=== PATIENT | female | born 1955 | race Caucasian/White ===

== ENCOUNTER → 2017-12-07 16:09 | Outpatient (CLI) | payer OTHER, SELFPAY ==
[2014-01-05 19:09] VITALS: BMI 28.8
[2014-01-08 13:14] VITALS: BP 109/58
--- NOTE | 2017-12-07 | VUL_PTH ---
PATIENT: MERLY MALDONADO LOC: [facility] U#:[id number] AGE/SX: 69/F ROOM: RE12/07/[address]: Dr. Becca Goldberg MD : 1955 BED: DIS: SPEC #: [id number] RECD: 12/07/17 15:59 STATUS: MIREILLE SUSANNE #: [id number] TOMASA: 12/07/17 00:[address]: Becca Goldberg DEPT: SURGICAL PATHOLOGY RECD BY: Billy Brown ENTERED: 12/08/17 10:52 SP TYPE: VULVA BX OTHR DR: Dr. Zohaib Carrasquillo DO Tissues: Vulva, NOS Procedures: Special Stain Group I Surgery Specimen Level IV GMS Stain (control) HEADER OPERATION: Punch biopsy, left posterior labia PRE-OP DIAGNOSIS: Vulvar lesion N76.6 TISSUE SUBMITTED: Punch biopsy left labia MICROSCOPIC DIAGNOSIS Left labia, punch biopsy: Fragment of squamous mucosa with acute inflammation, necrosis and acantholytic changes. Special stain for fungi is negative for organisms; matched control is appropriate. Negative for malignancy. MARY:ivory 12/09/17 COMMENT Clinical correlation and appropriate follow up are necessary. This case has been reviewed in consultation with Dr. Romano who concurs with the above diagnosis. MICROSCOPIC DESCRIPTION Slides are reviewed. GROSS DESCRIPTION Received in fixative is one container labeled with the patient's name and designated punch biopsy. The specimen consists of a single irregular fragment of covarrubias tissue measuring 0.3 x 0.3 x 0.2 cm. The specimen is totally submitted in one cassette. / AM:ivory 12/08/17 TC:2 CPT: 13539, 77872
== END ==
PROVIDERS: Family Provider Family Medicine; PCP Family Medicine; Visit Provider Obstetrics & Gynecology
DX: N76.6 Ulceration of vulva (principal)
CPT/HCPCS: 88305; 88312

== ENCOUNTER → 2018-01-06 12:44 | Outpatient (CLI) | payer OTHER, SELFPAY ==
--- NOTE | 2018-01-06 12:52 | RAD_ITS ---
STUDY: X-RAY - LEFT KNEE REASON FOR EXAM: Female, 62 years old. Left knee gives out sometimes. TECHNIQUE: 4 view(s) of the knee. COMPARISON: None. FINDINGS: Normal visualized distal femur. Normal visualized proximal tibia and fibula. Normal patella. There is no demonstrated destructive osseous lesion or acute fracture. There is mild degenerative arthrosis of the medial femorotibial compartment. Normal lateral femorotibial compartment. Normal patellofemoral articulation. Normal proximal tibiofibular articulation. There is no demonstrated joint effusion. There are a few serpiginous soft tissue densities consistent with venous varices in the medial and lateral superficial soft tissues of the visualized left leg. RAD/Knee 4 or More Views IMPRESSION: Degenerative narrowing of the medial femorotibial joint compartment. Electronically Signed: Fernando De León MD at 18:29 EST , Service support ,
--- NOTE | 2018-01-06 12:52 | RAD_ITS ---
STUDY: X-RAY - RIGHT KNEE REASON FOR EXAM: Female, 62 years old. Right knee pain. TECHNIQUE: 4 view(s) of the knee, 2 of which are labeled as weightbearing. COMPARISON: None. FINDINGS: Normal visualized distal femur. Normal visualized proximal tibia and fibula. Normal patella. There is no demonstrated destructive osseous lesion or fracture. Normal medial femorotibial compartment. Normal lateral femorotibial compartment. Normal patellofemoral articulation. Normal proximal tibiofibular articulation. There is no demonstrated joint effusion. Tortuous, mildly ectatic venous channel seen in the medial subcutaneous tissues of the right lower leg. RAD/Knee 4 or More Views IMPRESSION: Mild degenerative narrowing of the medial femorotibial joint compartment. Electronically Signed: Fernando De León MD at 18:30 EST , Service support ,
--- NOTE | 2018-01-06 12:52 | RAD_ITS ---
STUDY: X-RAY - CERVICAL SPINE REASON FOR EXAM: Female, 62 years old. Right arm numbness. TECHNIQUE: 5 view(s) of the cervical spine were obtained. COMPARISON: None FINDINGS: There are degenerative changes of the anterior atlantoaxial articulation. Normal odontoid process. There is mild straightening of the normal cervical lordosis. There is C6-7 endplate spondylosis. There is multi-level degenerative disc disease with multilevel disc space narrowing, most prominent at C6-7. There are degenerative changes of the facet articulations with severe osseous impingement on the left C6-7 intervertebral neural foramen. Mild to moderate narrowing seen on the right as well as on the right at C3-4. The prevertebral soft tissue structures are unremarkable. There is no demonstrated osseous destructive process or fracture of the cervical spine. RAD/Cerv Spine 4 or 5 Views IMPRESSION: Generative changes of the visualized cervical spine, as noted, most severe at C6-7. Electronically Signed: Fernando De León MD at 18:28 EST , Service support ,
== END ==
PROVIDERS: Family Provider Family Medicine; PCP Family Medicine; Visit Provider Family Medicine
DX: M54.2 Cervicalgia (principal); M25.561 Pain in right knee; M25.562 Pain in left knee
CPT/HCPCS: 72050; 73564

== ENCOUNTER → 2019-03-31 | Outpatient (CLI) | payer OTHER, SELFPAY ==
[2019-03-31 14:16] VITALS: BMI 31.3
[2019-03-31 17:04] LABS: Creatinine, Serum 0.73 mg/dL (0.55-1.02); EST Glomerular Filtration Rate 86 mL/min (>60); Est Glom Filt Rate - Afr Amer 104 mL/min (>60)
== END | disposition home or self-care (01) ==
LOC: LAB 15:32
PROVIDERS: Family Provider Family Medicine; PCP Family Medicine; Referring Provider Surgery; Visit Provider Surgery
DX: Z01.818 Encounter for other preprocedural examination (principal)
CPT/HCPCS: 36415; 82565

== ENCOUNTER → 2019-04-07 | Outpatient (CLI) | payer OTHER, SELFPAY ==
[2019-03-31 14:16] VITALS: BMI 31.3
--- NOTE | 2019-04-07 06:54 | CT_ITS ---
STUDY: CT ABDOMEN AND PELVIS WITH CONTRAST REASON FOR EXAM: Female, 63 years old. Constipation. Mid abdominal pain. RADIATION DOSAGE (If Supplied By Facility): CTDIvol = ( 14.43 ) mGy, DLP = ( 895.15 ) mGycm TECHNIQUE: Transaxial images were obtained from the dome of the diaphragm to the symphysis pubis without oral contrast. 100ML IV/Oral Isovue 300 was administered. Sagittal and coronal images were reconstructed. Individualized dose optimization techniques were used for this CT. COMPARISON: October 03, 2012 FINDINGS: The visualized lung bases are unremarkable. The visualized portions of the heart are within normal limits. Normal liver. Normal gallbladder and extrahepatic biliary system. Normal spleen. Normal pancreas. Normal bilateral adrenal glands. Normal there is a 2.5 cm left renal cyst. There are additional too small to characterize low-attenuation foci within the kidneys that likely reflect underlying cysts. Normal visualized stomach. Normal small intestine. There are diverticula throughout the sigmoid colon. The appendix is visualized and appears normal. Normal abdominal aorta. Normal inferior vena cava. Normal retroperitoneum. Normal urinary bladder. Normal abdominal wall. There are diffuse degenerative changes of the visualized thoracic and lumbar spine. CT/Abdomen/Pelvis WITH Contrast IMPRESSION: Colonic diverticulosis without evidence of diverticulitis. Left renal cyst. Electronically Signed: Zohreh Mae MD at 22:45 EDT Tel , Service support ,
== END | disposition home or self-care (01) ==
LOC: CT 06:49
PROVIDERS: Family Provider Family Medicine; PCP Family Medicine; Referring Provider Surgery; Visit Provider Surgery
DX: R10.9 Unspecified abdominal pain (principal); R19.4 Change in bowel habit; M54.9 Dorsalgia, unspecified
CPT/HCPCS: 74177; Q9967

== ENCOUNTER → 2019-04-21 | Outpatient (CLI) | payer OTHER, SELFPAY ==
[2019-03-31 14:16] VITALS: BMI 31.3
== END | disposition home or self-care (01) ==
LOC: MTLAB 16:06
PROVIDERS: Family Provider Family Medicine; PCP Family Medicine; Referring Provider Surgery; Visit Provider Surgery
DX: E11.9 Type 2 diabetes mellitus without complications (principal)
CPT/HCPCS: 36415; 83036

== ENCOUNTER 2019-04-28 08:09 | Day surgery (SDC) | payer OTHER, SELFPAY ==
--- NOTE | 2019-03-31 07:15 | HP_ITS ---
Intake Vital Signs 03/31/19 Height 5 ft 6 in 03/31/19 Weight: 194 lb 03/31/19 Body Mass Index (BMI) 31.3 03/31/19 Blood Pressure 144/85 H 03/31/19 Blood Pressure Location Rt brachial 03/31/19 Blood Pressure Position Sitting 03/31/19 Respiratory Rate 18 03/31/19 Pulse Rate 76 03/31/19 Pulse Source Monitor 03/31/19 Temperature 97.5 F L 03/31/19 Temperature Source Oral 03/31/19 Pulse Ox 99 03/31/19 Oxygen Delivery Method room air Intake Visit Reasons: Umbilical Hernia Compliance Attorney Required: No Is patient in pain?: No Allergies No Known Allergies Allergy (Verified 03/31/19 14:17) Medications NK 03/31/19 [History Confirmed 03/31/19] PFSH Medical History Constipation (Acute) Abdominal pain (Acute) Back pain (Acute) Arthritis (Acute) Depression (Acute) History of back problems (Acute) History of left heart catheterization (Acute) Sleep apnea (Acute) Family History Mother Diabetes Father Heart disease Brother Heart disease Social History Smoking Status: Unknown if ever smoked alcohol intake: current alcohol intake frequency: a few times a month substance use type: does not use HPI HPI HPI: MERLY MALDONADO, is a 63 F who presents to the office today for HPI HPI Surgical H&P: Yes HPI: MERLY MALDONADO, is a 63 F who presents to the office today for surgical consultation regarding 2-month history of back pain as well as abdominal distention severe change of bowel habits with constipation possible prolapsing rectal material. She thought that she had a fat protruding abdominal wall she is complains of upper abdominal bloating. She thinks she had a colonoscopy 2012 which was not remarkable. She denies family history of colon cancer or colon polyps. There was some concern that she might have a umbilical or ventral hernia. The patient points to her abdomen which has some fluffy folds of fibro-fatty tissue. She thinks she might be asymmetric. Patient is referred by his primary care is Dr. Zohaib Carrasquillo for surgical consultation regarding possibility of a abdominal pain being a umbilical or ventral hernia. A written copy of my surgical consult recommendations will be returned to him ROS General General: Yes weight change; no appetite, fatigue, colon cancer, breast cancer or weakness HEENT HEENT: No difficulty swallowing, eye injury, eye surgery, swollen glands or hoarseness Endo Endocrine: No thyroid disease, diabetes mellitus, thyroid cancer, Hair loss, heat intolerance or cold intolerance Skin Skin: No rash or changing moles Breast Breast: No left breast lump, right breast lump, nipple discharge, breast pain, abnormal mammogram, abnormal US or breast enlargement Musc Musculoskeletal: Yes back problems and arthritis; no rheumatoid arthritis, gout or joint pain Cardio Cardiovascular: No murmur, pacemaker, heart disease, atrial fibrillation, high blood pressure, heart attack, heart stent, palpitations, shortness of breat with exertion or chest pain Psych Psychiatric: Yes depression; no anxiety or hearing voices Resp Respiratory: No shortness of breath, Yes sleep apnea, No cough, No COPD, No asthma, No emphysema, No wheezing Gastro Gastrointestinal: No abdominal pain, No nausea or vomiting, No diarrhea, Yes constipation, No blood in stool, No acid reflux, Yes hemorrhoids, Yes ulcers, No gallbladder problem, No black,tarry stools [place] Hematologic: No blood thinners, No blood disorders, No bleeding, No anemia, No blood clots Neuro Neurologic: No system reviewed and no additional complaints, except as docu, No as per HPI, No abnormal walking, No abnormal hearing, No abnormal movements, No abnormal speech, No behavioral changes, No burning sensations, No confusion, No seizure-like activity, No unsteadiness, No dizziness, No localized weakness, No frequent falls, No headache(s), No lack of coordination, No loss of vision, No memory loss, No numbness, No other visual disturbances, No radiating pain, No restless legs, No sensory deficit, No fainting, No tingling, No tremor(s), No weakness, No other Exam Const General: cooperative, healthy appearing, comfortable, no acute distress Nutritional Appearance: obese Orientation: alert, awake [facility] Head: normal to inspection Chest Chest palpation & inspection: normal inspection of the chest Breast Palpation: No nipple discharge Resp Effort & Inspection: normal respiratory effort Auscultation: clear to auscultation bilaterally Cardio Rate: regular rate Rhythm: regular rhythm Heart Sounds: no murmurs GI Palpation: soft Auscultation: normal bowel sounds Musc Cervical Spine: normal cervical lordosis Skin General: no rashes or lesions noted Neuro Cognition: normal cognition Extrem General: no calf tenderness bilaterally Psych Affect: normal affect Assessment & Plan Problems 1. Acute midline low back pain without sciatica M54.5 2. Generalized abdominal pain R10.84 3. Constipation, unspecified constipation type K59.00 Plan Patient with new onset of back pain new onset of abdominal bloating fullness significant change of bowel habits with severe constipation. I am not detecting an umbilical or ventral hernia that would correlate with this problem. I am recommending to her a CT scan of the abdomen and pelvis. She is aware of the technique. I am recommending a colonoscopy with possible biopsy or polypectomy as indicated. If the CT scan demonstrates an upper GI etiology i.e. hiatal hernia then I would recommend adding a esophagogastroduodenoscopy at the time of the colonoscopy. She has had an opportunity to ask and have questions answered. We will proceed with a CT scan and then anticipate endoscopic evaluation as noted above. I very much appreciate the kind opportunity of assisting with her surgical care. CC: Dr. Zohaib Means M.D., F.A.C.S. Orders Orders: Colonoscopy Today K59.00, R10.9 Serum Creatinine & GFR Today Z01.818 Abdomen/Pelvis WITH Contrast Today M54.9, R10.9, R19.4 Coding Level of Care Code Comprehensive,moderate Diagnoses Acute midline low back pain without sciatica M54.5 ??Back pain location: low back pain ??Chronicity: acute ??Back pain laterality: midline ??Sciatica presence: without sciatica Generalized abdominal pain R10.84 ??Abdominal location: generalized Constipation, unspecified constipation type K59.00 ??Constipation type: unspecified constipation type 03/31/191914 <Electronically signed by Darian collins MD> Date _ Darian Means MD I have re-examined the patient. There are no clinical changes since date of exam.
[2019-03-31 14:16] VITALS: BMI 31.3
[2019-04-28] VITALS (7 sets, daily range): BP systolic 119–137; BP diastolic 67–86; PULSE 56–76; RESP 14–16; TEMP 36.1–36.3; O2SAT 97–100; BMI 30.3
--- NOTE | 2019-05-03 10:44 | OP.ENDO_ITS ---
05/03/2019 Zohaib Carrasquillo [address] [place] [address] Re : Colonoscopy procedure for Liane Hernándezbaugh Dear Dr. Carrasquillo This procedure was performed on Sunday, April 28, 2019. My impressions and recommendations are as follows: Impressions : - Hemorrhoids found on perianal exam. - Diverticulosis in the entire examined colon. There was no evidence of diverticular bleeding. - The examination was otherwise normal. - No specimens collected. Recommendations : - Discharge patient to home. - Resume previous diet. - Continue present medications. - Repeat colonoscopy in 10 years for screening purposes. My findings are described in the full procedure note, which is enclosed. If I can be of further assistance, please feel free to contact me at Doctor phone number(s): Work: . Sincerely, Darian Means MD 04/28/2019 10:00:06 AM This report has been signed electronically.
== END 2019-04-28 10:45 | disposition home or self-care (01) ==
LOC: EN 08:09 → AC 08:10
PROVIDERS: Family Provider Family Medicine; PCP Family Medicine; Referring Provider Family Medicine; Visit Provider Surgery
PROC: 0DJD8ZZ Inspection of Lower Intestinal Tract, Via Natural or Artificial Opening Endoscopic (ICD-10-PCS; CPT 45378; principal; 2019-04-28 09:10)
DX: K57.30 Diverticulosis of large intestine without perforation or abscess without bleeding (principal); K64.9 Unspecified hemorrhoids; E66.9 Obesity, unspecified; M19.90 Unspecified osteoarthritis, unspecified site; Z68.31 Body mass index [BMI] 31.0-31.9, adult
CPT/HCPCS: 45378; J7120

== ENCOUNTER → 2021-02-13 08:30 | Outpatient (CLI) | payer OTHER, SELFPAY ==
[2019-04-28 08:33] VITALS: BMI 30.3
--- NOTE | 2021-02-13 08:35 | RAD_ITS ---
STUDY: X-RAY - LUMBAR SPINE REASON FOR EXAM: Female, 65 years old. LOW BACK PAIN TECHNIQUE: 5 view(s) of the lumbar spine were obtained including oblique views. COMPARISON: Comparison is made with prior study dated 01/23/2011. FINDINGS: Normal lumbar lordosis. There is a mild dextroscoliosis of the lumbar spine. There is a normal alignment of the vertebrae. Normal vertebral bodies and endplates. Normal disc space heights. Moderate amount of fecal material is seen in the colon. RAD/L/S Spine Min 4 Views IMPRESSION: Mild dextroscoliosis. Electronically Signed: Usman Bhandari MD at 14:39 EDT , Service support ,
--- NOTE | 2021-02-13 09:00 | RAD_ITS ---
STUDY: X-RAY - CERVICAL SPINE REASON FOR EXAM: Female, 65 years old. R CERVICAL RADICULOPATHY TECHNIQUE: 5 view(s) of the cervical spine were obtained including oblique views. COMPARISON: Comparison is made with prior study of 01/06/2018. FINDINGS: Normal anterior atlantoaxial articulation. Normal odontoid process. There is straightening of the normal cervical lordosis. Moderate degree of disc space narrowing and spondylosis at the C6-C7 level. Normal visualized intervertebral neuroforamina. The soft tissue structures are unremarkable. RAD/Cerv Spine 4 or 5 Views IMPRESSION: Disc space narrowing and spondylosis at the C6-C7 level. Electronically Signed: Usman Bhandari MD at 14:38 EDT , Service support ,
[2021-02-13 10:26] LABS: Absolute Lymphocyte Count 1.16 X10^3/uL (0.83-4.51); Absolute Neutrophil Count 1.9 X10^3/uL (2.0-7.7); Basophil# 0.03 X10^3/uL; Basophil% 0.8 % (0-1); Eosinophil# 0.07 X10^3/uL; Eosinophils% 1.9 % (0-5); Hemoglobin 12.7 g/dL (12.0-15.0); Lymphocyte # 1.16 X10^3/ul (0.83-4.51); Lymphocyte % 31.8 % (19-41); Mean Corp Hgb Conc 30.2 g/dL (32-36); Mean Corpuscular Hgb 28.4 pg (27.0-32.0); Mean Platelet Vol. 10.9 fl (6.2-12.0); Monocyte# 0.51 X10^3/uL; NRBC Flagged by Analyzer 0 % (0-5); Neutrophil # 1.87 X10^3/uL (2.7-7.7); Neutrophil % 51.2 % (47-70); Platelet Count 275 K/mm3 (150-450); RBC Distribution Width CV 13.8 % (11.6-14.6); Red Blood Count 4.47 M/mm3 (4.2-5.4); White Blood Count 3.7 K/mm3 (4.4-11.0)
[2021-02-13 10:48] LABS: Hemoglobin A1c 5.5 % (3.8-5.6)
[2021-02-13 11:04] LABS: ALB/GLOB Ratio 0.9 RATIO (0.9-2.4); AST(SGOT) 16 U/L (15-37); Alanine Aminotransfer ALT/SGPT 26 U/L (13-56); Albumin, Serum 3.6 g/dL (3.2-5.0); Alkaline Phosphatase 109 U/L (45-117); Anion Gap 3 (5-15); BUN 16 mg/dL (7-18); BUN/Creat Ratio 24.4 RATIO (10-20); Calcium,Total 8.9 mg/dL (8.5-10.1); Chloride 107 mmol/L (98-107); Cholesterol 190 mg/dL (200); Creatinine, Serum 0.66 mg/dL (0.55-1.02); EST Glomerular Filtration Rate 97 mL/min (>60); Est Glom Filt Rate - Afr Amer 117 mL/min (>60); Globulin 3.9 g/dL (2.2-4.2); Glucose 85 mg/dL (74-106); High Density Lipoprotein 65 mg/dL; Potassium 3.5 mmol/L (3.5-5.1); Protein, Total 7.5 g/dL (6.4-8.2); Sodium Level 141 mmol/L (136-145); T4 Free Direct 0.93 ng/dL (0.76-1.46); Thyroid Stim Hormone (TSH) 1.42 uIU/mL (0.358-3.74); Triglycerides 94 mg/dL; Very Low Density Lipoprotein 19 mg/dL (5-40)
== END ==
PROVIDERS: PCP Family Medicine; Referring Provider Family Medicine; Visit Provider Family Medicine
DX: Z00.00 Encounter for general adult medical examination without abnormal findings (principal); M54.12 Radiculopathy, cervical region; M54.5 Low back pain; R73.03 Prediabetes; R53.83 Other fatigue
CPT/HCPCS: 36415; 72050; 72110; 80053; 80061; 83036; 84439; 84443; 85025

== ENCOUNTER → 2021-02-25 08:20 | Outpatient (CLI) | payer OTHER, SELFPAY ==
[2019-04-28 08:33] VITALS: BMI 30.3
--- NOTE | 2021-02-25 08:21 | CT_ITS ---
STUDY: CT ABDOMEN AND PELVIS WITH CONTRAST REASON FOR EXAM: Female, 65 years old. CENTRAL ABD MASS OF UNCERTAIN SIGNIFICANCE/POSSIBLE HERNIA RADIATION DOSAGE (If Supplied By Facility): CTDIvol = ( 13.04 ) mGy, DLP = ( 1410.65 ) mGycm TECHNIQUE: Transaxial images were obtained from the dome of the diaphragm to the symphysis pubis with oral contrast. Oral and amp; IV Readi-CAT and amp; 100mL Isovue-300 was administered. Sagittal and coronal images were reconstructed. Individualized dose optimization techniques were used for this CT. COMPARISON: Comparison is made with prior study dated 04/07/2019. FINDINGS: The visualized lung bases are unremarkable. The visualized portions of the heart are within normal limits. Normal liver. Normal gallbladder and extrahepatic biliary system. Normal spleen. Normal pancreas. Normal bilateral adrenal glands. Normal right kidney. There is a 2.8 cm cyst in the posterior aspect of the midportion of the left kidney. One some mucous cyst in the medial inferior pole of the left kidney. There is a small hiatal hernia. Normal small intestine. There are scattered colonic diverticula consistent with diverticulosis. The appendix is visualized and appears normal. Normal abdominal aorta. Normal inferior vena cava. Normal retroperitoneum. Normal urinary bladder. 1 cm cyst in the left ovary. Normal abdominal wall. Normal osseous structures. Minimal dextroscoliosis of the lumbar spine. CT/Abdomen/Pelvis WITH Contrast IMPRESSION: Stable left renal cysts. Scattered sigmoid diverticula. Small hiatal hernia. Electronically Signed: Usman Bhandari MD at 10:40 EDT , Service support ,
== END ==
PROVIDERS: PCP Family Medicine; Referring Provider Family Medicine; Visit Provider Family Medicine
DX: R19.00 Intra-abdominal and pelvic swelling, mass and lump, unspecified site (principal)
CPT/HCPCS: 74177; Q9967

== ENCOUNTER → 2021-04-08 09:46 | Outpatient (CLI) | payer OTHER, SELFPAY ==
[2021-04-03 15:17] VITALS: BMI 31.2
--- NOTE | 2021-04-08 13:24 | STRESSREP ---
Stress Test Report Date: 04-08-2021 Procedure: Exercise tolerance test Indications: Abnormal ECG; family history of cardiovascular disease Consent: Per the patient Procedure: The patient exercised on a Cipriano protocol for 5 minutes completing stage I and 2 minutes of stage II achieving a peak heart rate of 153 bpm (97% predicted maximal heart rate) with a peak blood pressure 208/96 mmHg and a peak MET capacity of approximately 7 MET's. The baseline ECG demonstrated sinus rhythm. The peak exercise ECG demonstrated approximately [address] segment depression in leads II, III, aVF, and approximately [address] segment depression in V4 through V6 with subsequent resolution towards baseline in recovery. There was a rare PVC during exercise and recovery. The functional capacity was considered average. The patient had no complaint of chest discomfort during exercise or recovery. The examination was discontinued secondary to dyspnea. Impression: 1. Technically adequate (percent predicted maximal heart rate greater than 85%) exercise tolerance test 2. Peak exercise ECG considered abnormal with approximately [address] segment depression in leads II, III, aVF, and approximately [address] segment depression in V4 through V6 with subsequent resolution towards baseline in recovery 3. There was a rare PVC during exercise and recovery This note was generated with [employer] software. It may contain incorrect words, spelling, and punctuation that were not noted in checking the note before signing.
== END ==
PROVIDERS: PCP Family Medicine; Referring Provider Internal Medicine Cardiovascular Disease; Visit Provider Internal Medicine Cardiovascular Disease
DX: R94.31 Abnormal electrocardiogram [ECG] [EKG] (principal); Z82.49 Family history of ischemic heart disease and other diseases of the circulatory system
CPT/HCPCS: 93017

== ENCOUNTER → 2021-04-22 07:53 | Outpatient (CLI) | payer OTHER, SELFPAY ==
[2021-04-03 15:17] VITALS: BMI 31.2
--- NOTE | 2021-04-22 07:54 | ECHOCS_ITS ---
Reason For Study: +FAM HX/ ABN EKG Procedure This was a 2D Doppler, Color Flow transthoracic echocardiogram. The study was technically difficult. Contrast injection was performed. Exam performed in department. Left Ventricle Normal LV size. Left ventricular systolic function is normal. The estimated ejection fraction is 65 %. No evidence for diastolic dysfunction. No regional wall motion abnormalities noted. Right Ventricle Normal RV size. Normal systolic function. Atria Normal left atrium. Normal right atrium. No doppler evidence for ASD. Mitral Valve There is no mitral annular calcification. Anterior leaflet diffuse mitral valve thickening. Mild mitral valve prolapse. Trivial mitral valve insufficiency. Tricuspid Valve Normal tricuspid valve. Trivial tricuspid valve insufficiency. Right ventricular systolic pressure estimated to be 23 mmHg. Aortic Valve Trisinus/trileaflet aortic valve. Normal aortic valve. Pulmonic Valve The pulmonic valve is not well visualized. Trivial pulmonic valve insufficiency. Great Vessels Normal sized aortic root. Pericardium/Pleural No pericardial effusion. Medication 22 gauge I.V. with prn adaptor inserted into right arm. Diluted definity 7ml given slow IV push to enhance endocardial definition. MMode/2D Measurements & Calculations LVIDd: 4.6 cm IVSd: 0.93 cm Ao root diam: 3.1 cm LVIDs: 3.1 cm LVPWd: 0.95 cm RVDd: 3.8 cm FS: 33.2 % LAV(MOD-bp): 51.4 ml LA A4 area: 19.0 cm2 LA dimension(2D): 3.5 cm LAV(MOD-bp) Indexed: 26.1 ml/m2 LAV(MOD-sp2): 47.6 ml LAV(MOD-sp4): 54.9 ml RA A4 area: 15.7 cm2 Time Measurements MV dec time: 0.23 sec Doppler Measurements & Calculations MV E max carlos: 52.5 cm/sec Lat Peak E' Carlos: 6.4 cm/sec Med Peak E' Carlos: 4.8 cm/sec MV A max carlos: 43.4 cm/sec E/E' lat: 8.2 E/E' med: 11.0 MV E/A: 1.2 Ao V2 max: 98.2 cm/sec LV V1 max: 74.8 cm/sec PA V2 max: 76.9 cm/sec Ao max P.9 mmHg LV V1 max P.2 mmHg TR max carlos: 221.3 cm/sec TR max P.6 mmHg ECHO/Echo Complete W/ Contrast Interpretation Summary The study was technically difficult. Contrast injection was performed. Left ventricular systolic function is normal. The estimated ejection fraction is 65 %. Anterior leaflet diffuse mitral valve thickening. Mild mitral valve prolapse. Trivial mitral valve insufficiency. Trivial tricuspid valve insufficiency. Trivial pulmonic valve insufficiency. Right ventricular systolic pressure estimated to be 23 mmHg. No evidence for diastolic dysfunction. Ordering Physician: Yash Storm Referring Physician: NURY HARRIS Performed By: Bernadette Bagley, RAMIRO, RVT
== END ==
PROVIDERS: PCP Family Medicine; Referring Provider Internal Medicine Cardiovascular Disease; Visit Provider Internal Medicine Cardiovascular Disease
DX: R94.39 Abnormal result of other cardiovascular function study (principal); R94.31 Abnormal electrocardiogram [ECG] [EKG]
CPT/HCPCS: 93306; Q9957; A4216; C8929; J3490

== ENCOUNTER 2021-05-09 06:50 | Day surgery (SDC) | payer OTHER, SELFPAY ==
[2021-04-03 15:17] VITALS: BMI 31.2
[2021-04-29 08:28] VITALS: BMI 31.2
--- NOTE | 2021-04-29 09:12 | RAD_ITS ---
STUDY: X-RAY CHEST REASON FOR EXAM: Female, 65 years old. Abnormal Stress Test TECHNIQUE: PA and lateral views of the chest. COMPARISON: 01/05/2014 FINDINGS: The lungs are clear and expanded. There is no demonstrated pleural abnormality. Normal size heart. Normal mediastinum and mari. Normal visualized pulmonary arteries. Normal visualized aortic arch and descending thoracic aorta. There is a dextroscoliosis of the thoracic spine. Normal visualized ribs, clavicles, and shoulders. There is no demonstrated abnormality of the visualized soft tissue structures of the upper abdomen. RAD/Chest PA and Lateral IMPRESSION: Normal x-ray examination of the chest. Electronically Signed: Mike Sutton MD at 10:26 EDT Tel , Service support ,
[2021-04-29 10:35] LABS: Hematocrit 40.5 % (37-47); Hemoglobin 12.7 g/dL (12.0-15.0); Mean Corp Hgb Conc 31.4 g/dL (32-36); Mean Corpuscular Hgb 28.7 pg (27.0-32.0); Mean Corpuscular Volume 91.4 fL (81-99); Mean Platelet Vol. 10.6 fl (6.2-12.0); Platelet Count 268 K/mm3 (150-450); RBC Distribution Width CV 13.9 % (11.6-14.6); RBC Distribution Width SD 47.1 fl (35.1-43.9); Red Blood Count 4.43 M/mm3 (4.2-5.4); White Blood Count 6.7 K/mm3 (4.4-11.0)
[2021-04-29 10:53] LABS: Anion Gap 6 (5-15); BUN 19 mg/dL (7-18); BUN/Creat Ratio 26.9 RATIO (10-20); Calcium,Total 9.2 mg/dL (8.5-10.1); Chloride 105 mmol/L (98-107); Creatinine, Serum 0.71 mg/dL (0.55-1.02); EST Glomerular Filtration Rate 89 mL/min (>60); Est Glom Filt Rate - Afr Amer 107 mL/min (>60); Glucose 88 mg/dL (74-106); Potassium 3.8 mmol/L (3.5-5.1); Sodium Level 141 mmol/L (136-145)
[2021-04-29 11:06] LABS: International Normalized Ratio 0.9; Partial Thromboplast Time 30.8 Seconds (24.1-36.2)
[2021-05-07 13:26] VITALS: BMI 31.1
--- NOTE | 2021-05-08 18:11 | PCM.HP.BLA ---
History and Physical Date of Admission: 05/09/21 [facility] [id number] [place], [place] [phone] OFFICE VISITDate of Service: 04/03/21 MR#:[id number]: MERLY MALDONADO JRep #:[id number] Provider:Dr. Yash Storm, CECILIAge/Sex: 65/F [facility] [place]Signed HPI HPI History of Present Illness Details: This is a 65-year-old white female who presents today for outpatient cardiovascular consultation based upon concerns of an abnormal ECG and a family history of cardiovascular disease. . She states she walks every day. She has not noted any ongoing symptoms of concerning chest discomfort or difficulty breathing. There has been no obvious issues of orthopnea or PND or peripheral pitting edema. There has been no near syncope or syncope. She has undergone evaluation in the past from a cardiovascular standpoint. In 2013 she underwent noninvasive and invasive evaluation. The results of her studies are as noted below. She states that multiple family members have cardiovascular disease and have undergone evaluation and care. She was encouraged by them to present back to cardiology for reassessment as to whether or not she has developed any cardiovascular disease. She did have lipid labs performed on 02-13-2021. Her total cholesterol was 190 with an LDL of 106 and an HDL of 65. Her triglycerides were 94. This is without any medical therapy. It appears she had an ECG performed on 02-12-2021. She had sinus rhythm with a reported possible left atrial enlargement and a nonspecific ST and T wave abnormality. Her ECG was repeated today. She does appear to have sinus rhythm with possible left atrial enlargement and a nonspecific T wave abnormality. Intake Vital Signs 04/03/21 15:17 Height 5 ft 6 in Weight: 193 lb 9 oz BMI 31.2 BP 138/84 H Blood Pressure Location Lt brachial Position Sitting Respiration 16 Pulse 68 Pulse Source Auscultation Intake Visit Reasons: Family Hx/Ref. Neida Clinical Data Research Required: No Accompanied by: Self Allergies lisinopril Adverse Reaction (Verified 04/03/21 15:20) Other Medications melatonin 1 mg tablet 1 mg PO HS PRN 04/03/21 [History Confirmed 04/03/21] multivitamin with minerals 1 tab PO DAILY 04/03/21 [History Confirmed 04/03/21] [facility] Medical History (Updated 04/03/21 @ 16:[address] Yash Storm MD) Abdominal pain Abnormal electrocardiogram Arthritis Back pain Constipation Depression Family history of cardiovascular disease GERD (gastroesophageal reflux disease) History of back problems Sleep apnea Surgical History History of bilateral cataract extraction History of left heart catheterization (~01/05/14) History of nasal surgery History of rotator cuff surgery Family History Mother Diabetes Father Heart disease Brother Heart disease Brother Electrical isolation of left atrial appendage after cardiac ablation procedure for atrial fibrillation Social History Smoking Status: Never smoker alcohol intake: current alcohol intake frequency: a few times a month substance use type: does not use caffeine: No ROS Const Const: Negative for fatigue, weakness, frequent falls, excessive sweating, weight gain or weight loss Eyes Eyes: Negative for transient loss of vision, blurry vision or change in vision ENT ENT: Positive for balance problems; Negative for dizziness Cardio Chest Pain: No Palpitations: No Edema: Bilateral (hands) and None Muscle aches with walking: None Resp Respiratory: Negative for SOB with activity or SOB at rest GI GI: Negative vomiting or vomiting blood/hematemesis : Negative for hematuria Musc Musc: Positive for joint pain (HX arthritis) and balance problems; Negative for muscle aches/ myalgia or muscle weakness Skin Skin: Negative non-healing lesions or rash Neuro Neuro: Negative for dizziness, lightheadedness, orthostatic symptoms, frequent falls, weakness or blurry vision [place] Hematologic/Lymphatic: Negative for easy bleeding Endo Endo: Negative for fatigue or excessive sweating Psych Psych: Negative for anxiety or depression Allergy Allergy/Immunology: Negative for hives and Negative for rash Cardiology Exam Const Appearance: cooperative, healthy appearing, comfortable, no acute distress, well developed and well groomed Nutritional Appearance: overweight Orientation: alert, awake and oriented x3 Head Head: normal to inspection, normocephalic and atraumatic Ears: hearing grossly normal bilaterally Nose: external nose normal Face and Sinus: face symmetric Eyes Eyelids: eyelids normal Conjunctivae: conjunctivae normal Pupils: PERRL EOM: EOM intact bilaterally Neck Neck: normal visual inspection and full ROM Carotids: normal carotid upstroke Chest Chest inspection: normal inspection of the chest, symmetric chest movement and normal respiratory effort Auscultation: Bilateral: Clear to Auscultation Cardio Palpation: normal PMI Rate: regular rate Rhythm: regular rhythm Heart sounds: S1 normal and S2 normal GI GI: normal to inspection, soft and bowel sounds present Neuro General: patient alert, patient awake, patient oriented x3 and moves all extremities Skin Skin: no rashes or lesions noted Extremities Pulses: Normal: Right Radial Pulse and Left Radial Pulse Psych Psychological: normal affect Assessment and Plan Assessment and Plan (1) Abnormal electrocardiogram: Status: Acute Orders: Orders: Stress Test Regular Today Plan - Dr. Yash Storm MD: She does have an abnormal electrocardiogram. At the present time based upon her family history concerns and her electrocardiogram it may not be unreasonable to reassess her from a cardiovascular standpoint for any change in her cardiovascular status especially the development of CAD that would warrant additional evaluation care. Thus it was felt reasonable that she undertake a treadmill stress test. Depending upon the findings she may or may not need further cardiac evaluation. (2) Family history of cardiovascular disease: Status: Acute Orders: Orders: 12 Lead EKG performed by [facility] Today Stress Test Regular Today Plan - Dr. Yash Storm MD: She does have a family history of underlying cardiovascular disease. She does not appear to have the additional risk factors such as hypertension, hyperlipidemia, diabetes mellitus, positive tobacco use, etc. Based upon her family history and her abnormal ECG despite her previous noninvasive and invasive studies it was felt reasonable that she undergo reassessment as noted above. This was discussed with her and she was agreeable to this. Plan Details Other Orders: Orders: 12 Lead EKG performed by [facility] Today K21.9 Additional Comments: Thank you for allowing me to participate in the care of your patient. Please don't hesitate to call if any issues arise. This note was generated using a voice recognition system and there may be incorrect words, spelling or punctuation that were not noted when reviewing the office note prior to saving. Follow Up: 1 Year (with PFM) Coding Level of Care Code Off vis,new,level 4 Diagnoses Abnormal electrocardiogram R94.31 Family history of cardiovascular disease Z82.49 Coding Level of Care Code Off vis,new,level 4 Diagnoses Abnormal electrocardiogram R94.31 Family history of cardiovascular disease Z82.49 Supplemental Info Supplemental Information Echocardiogram: 01-05-2014 Interpretation Summary Normal LV size. Left ventricular systolic function is normal. The estimated ejection fraction is 60 %. Mild diffuse mitral valve thickening. Mild (1+) mitral valve insufficiency. Mild (1+) tricuspid valve insufficiency. Stress test: 01-04-2014 The patient underwent pharmacologic (regadenoson) evaluation with a peak heart rate of 115 beats per minute (78% predicted maximum heart rate) and a peak blood pressure of 142/78 mmHg. The baseline ECG demonstrated normal sinus rhythm with nonspecific ST and T-wave abnormality. The peak pharmacologic ECG demonstrated additional downsloping ST segment depression and T wave inversion in leads II, III, aVF, and V4 through V6 with gradual resolution towards baseline in recovery. There were no obvious cardiac dysrhythmias pretest, during pharmacologic infusion, or recovery. The patient complained of chest discomfort during infusion with spontaneous resolution in recovery. The examination was discontinued secondary to completion of protocol. IMPRESSION: 1. Pharmacologic (regadenoson) evaluation. 2. Peak pharmacologic ECG with additional downsloping ST-segment depression and T-wave inversion in leads II, III, aVF, and V4 through V6 with gradual resolution towards baseline in recovery. 3. Nuclear images pending. MYOCARDIAL PERFUSION IMAGING STUDY: TECHNIQUE: The patient was injected with 11.7 mCi of Tc99m Cardiolite and subsequently rest SPECT Cardiolite nuclear imaging was obtained in the horizontal long, vertical long, and short axes views. The patient underwent pharmacologic (regadenoson) evaluation with a peak heart rate of 115 beats per minute (78% predicted maximum heart rate) and a peak blood pressure of 142/78 mmHg. The patient was injected with 33.6 mCi of Tc99m Cardiolite and subsequently stress SPECT Cardiolite nuclear imaging was obtained in the horizontal long, vertical long, and short axes views. A gated Cardiolite study at peak stress was obtained. INTERPRETATION: Rest and stress SPECT Cardiolite nuclear imaging demonstrate areas of extracardiac/hepatic and gastrointestinal tracer uptake near the inferior segments. This is much more prominent on the resting views as opposed to the stress views. Both images demonstrate areas of diminished tracer uptake in portions of the basal inferoseptal and basal inferior segments without significant change. Otherwise, there appears to be relative uniform tracer uptake. There is end systolic thickening and brightening. The gated Cardiolite study demonstrates myocardial thickening and inward wall motion. The reported LVEF is 71%. The aforementioned changes appear compatible with the effects of soft tissue attenuation/artifact with no myocardial perfusion changes considered diagnostic for stress induced myocardial ischemia or previous myocardial injury/infarction. IMPRESSION: 1. Rest and stress SPECT Cardiolite nuclear imaging demonstrate myocardial perfusion changes appearing compatible with the effects of soft tissue attenuation/artifact with no myocardial perfusion changes considered diagnostic for stress induced myocardial ischemia or previous myocardial injury/infarction. 2. The gated Cardiolite study reports an LVEF of 71%. Cardiac catheterization: 01-08-2014 HEMODYNAMICS: The baseline heart rate was noted to be 62 beats per minute. Aortic pressures were 145/73 and left ventricular pressure is 143/16. Post-angiogram left ventricular pressure is 135/18. Aortic pressure is 146/39. CORONARY ARTERIOGRAPHY: 1. Left main: The left main coronary artery was noted to be angiographically normal. It bifurcated into left anterior descending artery and left circumflex artery. No significant stenosis was noted in the left main coronary artery. 2. Left anterior descending artery: Left anterior descending artery is a medium-sized vessel. The first diagonal vessel is with no significant disease. The vessel continued giving off a second diagonal vessel, which bifurcated with no significant disease. The left anterior descending artery had a tortuous course towards the apex of the left ventricle. No significant stenosis was noted in this vessel. 3. Left circumflex artery: The left circumflex artery was a medium sized nondominant vessel. It gave off a first obtuse marginal branch, which did not appear to have any significant stenosis present. The second obtuse marginal branch was also noted, which did not have any significant stenosis and a third obtuse marginal/posterolateral branch. An atrial circumflex artery was also noted, which was angiographically normal. 4. Right coronary artery: The right coronary artery was a dominant vessel. There was a small conus branch and a sinoatrial branch. The vessel continued and gave off a posterior descending artery with inferior septal perforators. No significant stenosis was noted in this vessel. 5. Left ventriculogram: The left ventriculogram demonstrated preserved ejection fraction. Estimated ejection fraction was 65%. No wall motion abnormalities were noted. CONCLUSION: 1. Angiographically normal left main coronary artery. 2. Left anterior descending artery, which is angiographically normal. 3. Left circumflex artery, which is angiographically normal. 4. Dominant right coronary artery, which is angiographically normal. 5. Preserved ejection fraction. Based on the above angiographic findings, I would recommend continued aggressive medical therapy. Antihypertensive medications will be instituted. Eliezer Cabral MD Labs: LDL Cholesterol 106 mg/dL (0-130) HDL Cholesterol 65 mg/dL (40-) Triglycerides 94 mg/dL (-199) VLDL Cholesterol 19 mg/dL (5-40) Diagnostics: Electrocardiogram Echocardiogram Stress Test NM Chest X-Ray Pulmonary: No Data to Display 04/03/21 [id number]<Electronically signed by Yash Storm MD>Date Yash Storm MD Cosigner Signature:Date (if applicable) CC: Dr. Zohaib Carrasquillo, DO ~ Addendum: Transthoracic echocardiogram: 04-22-2021: Interpretation Summary The study was technically difficult. Contrast injection was performed. Left ventricular systolic function is normal. The estimated ejection fraction is 65 %. Anterior leaflet diffuse mitral valve thickening. Mild mitral valve prolapse. Trivial mitral valve insufficiency. Trivial tricuspid valve insufficiency. Trivial pulmonic valve insufficiency. Right ventricular systolic pressure estimated to be 23 mmHg. No evidence for diastolic dysfunction. Stress Test Report Date: 04-08-2021 Procedure: Exercise tolerance test Indications: Abnormal ECG; family history of cardiovascular disease Consent: Per the patient Procedure: The patient exercised on a Cipriano protocol for 5 minutes completing stage I and 2 minutes of stage II achieving a peak heart rate of 153 bpm (97% predicted maximal heart rate) with a peak blood pressure 208/96 mmHg and a peak MET capacity of approximately 7 MET's. The baseline ECG demonstrated sinus rhythm. The peak exercise ECG demonstrated approximately [address] segment depression in leads II, III, aVF, and approximately [address] segment depression in V4 through V6 with subsequent resolution towards baseline in recovery. There was a rare PVC during exercise and recovery. The functional capacity was considered average. The patient had no complaint of chest discomfort during exercise or recovery. The examination was discontinued secondary to dyspnea. Impression: 1. Technically adequate (percent predicted maximal heart rate greater than 85%) exercise tolerance test 2. Peak exercise ECG considered abnormal with approximately [address] segment depression in leads II, III, aVF, and approximately [address] segment depression in V4 through V6 with subsequent resolution towards baseline in recovery 3. There was a rare PVC during exercise and recovery The surgeon/proceduralist and patient have discussed in detail the risk of exposure to and/or potential harm posed by the COVID-19 virus with having a surgery/procedure at this time versus the risk of delaying the surgery/procedure. It is not possible to know either the risk of delaying the surgery or procedure or chance of getting an infection with perfect accuracy, but a joint decision was made between the patient and the surgeon/proceduralist to proceed at this time with the scheduled surgery/procedure as indicated on the consent form. I have re-examined the patient. There are no clinical changes since date of exam.
--- NOTE | 2021-05-09 09:21 | CL.D_ITS ---
Patient Name: MERLY MALDONADO Study Date: 05/09/2021 Performing: Yash Storm MD Ht: 66.14 inches 168 cm : 1955 Wt: 194.01 lbs 88 kg Age: 65 Gender: female BSA: 1.98 PROCEDURE(S) PERFORMED [id number]-XSE/COR/LV CLINICAL PROFILE AND INDICATIONS Indications: Suspected CAD Heart Failure: None Stress/Imaging Date: 04/08/2021 Angina Classification Anginal Classification w/in 2 Weeks: Anginal Equivalent Dyspnea CAD Presentations: Other: dyspnea on exertion CONCLUSIONS Elevated Left Ventricular End Diastolic Pressure Normal LV size, wall motion,and systolic function LVEF: by LV gram 60 % Normal coronary arteries RECOMMENDATIONS Risk factor modification Medical therapy DESCRIPTION OF PROCEDURE The patient arrived to the procedure lab. The risks and benefits of the procedure as well as a full d escription of our services here and current unavailability of surgical backup were fully explained to the patient and/or their significant other prior to the catheterization. The Timeout was completed, verifying the correct patient and procedure. The patient's procedural site was prepped and draped in the usual fashion. Local anesthetic was given subcutaneously to right radial region with Lidocaine 2% . Using a modified Seldinger technique, arterial access was obtained via the right radial artery, a 6 Fr sheath was inserted. Left Coronary Artery selective angiography was performed in multiple views u sing a 5 Fr. 4.0 [place] catheter. Right Coronary Artery selective angiography was then performed in mu ltiple views using a 5 Fr. 4.0 [place] catheter. Left Ventriculography was performed in COLES projection using a 5 Fr. Pigtail catheter. LV to AO pullback pressures were then recorded.The arterial sheath was pulled and a TR Band was applied for hemostasis w/ 13ml air CORONARY ANGIOGRAPHY DOMINANCE: Right Dominant LEFT HEART ASSESSMENT Left Ventricular Ejection Fraction: by LV Gram 60 % Normal LV wall motion Elevated Left Ventricular End Diastolic Pressure LVEDP: 29 mmHg LEFT MAIN: Angiographically normal LEFT ANTERIOR DESCENDING ARTERY: Angiographically normal CIRCUMFLEX ARTERY: Angiographically normal RIGHT CORONARY ARTERY: Angiographically normal AORTIC ROOT: Angiographically normal COMPLICATIONS No Complications PROCEDURE MEDICATIONS Versed 1 mg IV Fentanyl 50 mcg IV Versed 1 mg IV Fentanyl 50 mcg IV Oxygen: 2 L/min via nasal cannula Heparin given IA 05/09/2021 08:18:53 Verapamil 2.5mg, Ntg 100mcgs, 2000 units of Heparin given IA 05/09/2021 08:18:53 SUMMARY OF HEMODYNAMIC DATA Time AIR REST ECG 07:46:51 AO 129/74 (99) SA 08:22:40 LV 151/5, 25 08:27:44 LV 163/-2, 29 08:27:51 LV 157/-5, 24 08:28:36 LV 153/-5, 26 08:28:42 LVp 154/0, 23 08:28:46 AOp 148/76 (110) 08:28:52 Signed By Yash Storm MD On 05/09/2021 09:20:51 Yash Storm MD
== END 2021-05-09 10:25 | disposition home or self-care (01) ==
LOC: CLSP 06:51
PROVIDERS: PCP Family Medicine; Referring Provider Internal Medicine Cardiovascular Disease; Visit Provider Internal Medicine Cardiovascular Disease
DX: R94.31 Abnormal electrocardiogram [ECG] [EKG] (principal); Z82.49 Family history of ischemic heart disease and other diseases of the circulatory system; M19.90 Unspecified osteoarthritis, unspecified site; K21.9 Gastro-esophageal reflux disease without esophagitis
CPT/HCPCS: 36415; 71046; 80048; 85027; 85610; 85730; 93458; 99152; 99153; J7040; Q9967; C1769; C1894

== ENCOUNTER → 2021-05-27 10:40 | Outpatient (CLI) | payer OTHER, SELFPAY ==
[2021-05-13 07:08] VITALS: BMI 31.1
--- NOTE | 2021-05-28 08:05 | PFT ---
INTRODUCTION: The patient is a 65-year-old female that presents for pulmonary function studies secondary to a diagnosis of dyspnea. Respiratory therapy reported good patient effort. Bronchodilators were used during testing. INTERPRETATION: Forced expiration spirometry demonstrates no evidence of a large airways obstructive ventilatory defect. There was no significant response to aerosolized bronchodilators. Spirograms are of good quality and plateau normally. The respiratory flow volume loop is normal. Body plus tomography was performed and reveals lung volumes to be within normal limits. Diffusing capacity by single breath CO is also within normal limits. IMPRESSION: Grossly normal pulmonary function studies.
== END ==
PROVIDERS: PCP Family Medicine; Referring Provider Internal Medicine Critical Care Medicine; Visit Provider Internal Medicine Critical Care Medicine
DX: R06.00 Dyspnea, unspecified (principal)
CPT/HCPCS: 94060; 94726; 94729

== ENCOUNTER → 2022-08-10 | Outpatient (CLI) | payer OTHER, SELFPAY ==
--- NOTE | 2022-08-10 13:35 | BI_ITS ---
MAMMOGRAPHY - BILATERAL SCREENING REASON FOR EXAM: Female, 66 years old. Routine annual screening examination. PERTINENT HISTORY: Non-contributory. History of bilateral nipple inversion. TECHNIQUE: Digital bilateral breast rafy (3D mammographic acquisition) in the CC and MLO projections. 2-D mediolateral oblique (MLO) and craniocaudad (CC) views of both breasts were obtained. CAD: Full Field Digital Mammography with Computer Added Detection was performed. COMPARISON: Comparison is made with prior study dated 12/01/2013. FINDINGS: Breast Composition: There are scattered areas of fibroglandular density. There are no dominant masses or suspicious calcifications. Stable small benign appearing bilateral axillary lymph nodes. No other significant abnormalities are identified. There has been no significant change since the prior study. BI/SCRN MAMM (CAD)W/RAFY BILAT IMPRESSION: Stable bilateral screening mammogram. Yearly follow-up mammogram recommended. (A) ASSESSMENT CATEGORY: BIRADS Category 2: Benign. A letter regarding these results will be sent to the patient by the facility within 30 days. Approximately 10% of breast cancers are not detected by mammography. A normal mammogram should not delay biopsy of a clinically suspicious abnormality. [id number] Electronically Signed: Usman Bhandari MD at 14:48 EDT ,
== END | disposition home or self-care (01) ==
LOC: OPBI 13:32
PROVIDERS: PCP Family Medicine; Visit Provider Family Medicine
DX: Z12.31 Encounter for screening mammogram for malignant neoplasm of breast (principal)
CPT/HCPCS: 77063; 77067

== ENCOUNTER → 2023-10-07 | Outpatient (CLI) | payer MEDICARE, BC, SELFPAY ==
[2023-10-07 10:21] LABS: Absolute Neutrophil Count 3.6 X10^3/uL (2.0-7.7); Basophil# 0.06 X10^3/uL; Basophil% 0.9 % (0-1); Eosinophil# 0.18 X10^3/uL; Eosinophils% 2.6 % (0-5); Hematocrit 42.2 % (37-47); Hemoglobin 13.2 g/dL (12.0-15.0); Lymphocyte % 33.8 % (19-41); Mean Corp Hgb Conc 31.3 g/dL (32-36); Mean Corpuscular Hgb 29.1 pg (27.0-32.0); Mean Platelet Vol. 10.3 fl (6.2-12.0); Monocyte# 0.69 X10^3/uL; Monocyte% 10.1 % (0-10); NRBC Flagged by Analyzer 0 % (0-5); Neutrophil # 3.56 X10^3/uL (2.7-7.7); Neutrophil % 52.5 % (47-70); Platelet Count 297 K/mm3 (150-450); RBC Distribution Width CV 13.8 % (11.6-14.6); RBC Distribution Width SD 46.7 fl (35.1-43.9); Red Blood Count 4.54 M/mm3 (4.2-5.4); White Blood Count 6.8 K/mm3 (4.4-11.0)
[2023-10-07 11:03] LABS: ALB/GLOB Ratio 0.8 RATIO (0.9-2.4); AST(SGOT) 13 U/L (15-37); Alanine Aminotransfer ALT/SGPT 21 U/L (13-56); Albumin, Serum 3.4 g/dL (3.2-5.0); Alkaline Phosphatase 97 U/L (45-117); Anion Gap 3 (5-15); BUN 19 mg/dL (7-18); BUN/Creat Ratio 30.5 RATIO (10-20); Calcium,Total 9.2 mg/dL (8.5-10.1); Chloride 110 mmol/L (98-107); Creatinine, Serum 0.62 mg/dL (0.55-1.02); EST Glomerular Filtration Rate 102 mL/min (>60); Est Glom Filt Rate - Afr Amer 123 mL/min (>60); Globulin 4.2 g/dL (2.2-4.2); Glucose 89 mg/dL (74-106); Protein, Total 7.6 g/dL (6.4-8.2); Sodium Level 140 mmol/L (136-145); Thyroid Stim Hormone (TSH) 1.65 uIU/mL (0.358-3.74)
== END | disposition home or self-care (01) ==
PROVIDERS: PCP Family Medicine; Referring Provider Physician Assistant Medical; Visit Provider Physician Assistant Medical
DX: R94.31 Abnormal electrocardiogram [ECG] [EKG] (principal); I10 Essential (primary) hypertension; R06.00 Dyspnea, unspecified
CPT/HCPCS: 36415; 80053; 84443; 85025

== ENCOUNTER → 2024-01-31 | Outpatient (CLI) | payer MEDICARE, BC, SELFPAY ==
[2024-01-31 10:40] LABS: Progesterone Level < 0.21 ng/mL (See Comment)
[2024-01-31 11:06] LABS: Estradiol < 11.0 pg/mL; Follicle Stimulating Hormone 67.1 mIU/mL; Luteinizing Hormone 30.9 mIU/mL
[2024-02-01 04:07] LABS: DHEA Sulfate 41.2 ug/dL (20.4-186.6)
== END | disposition home or self-care (01) ==
PROVIDERS: PCP Family Medicine; Referring Provider Family Medicine; Visit Provider Family Medicine
DX: E34.9 Endocrine disorder, unspecified (principal)
CPT/HCPCS: 36415; 82627; 82670; 83001; 83002; 84144; 84403; 82626

== ENCOUNTER → 2024-02-08 | Outpatient (CLI) | payer MEDICARE, BC, SELFPAY ==
--- NOTE | 2024-02-08 13:47 | ECHOD_ITS ---
Reason For Study: ABNORMAL EKG Procedure This was a 2D Doppler, Color Flow transthoracic echocardiogram. Exam performed in department. Left Ventricle Normal LV size. The estimated ejection fraction is 65 %. No evidence for diastolic dysfunction. No regional wall motion abnormalities noted. Right Ventricle Normal RV size. Normal systolic function. Atria Normal left atrium. Normal right atrium. No doppler evidence for ASD. Mitral Valve There is no mitral valve stenosis. No mitral valve insufficiency. Tricuspid Valve There is no tricuspid stenosis. Trivial tricuspid valve insufficiency. Unable to estimate RV systolic pressure due to insufficient tricuspid regurgitant envelope. Aortic Valve Trisinus/trileaflet aortic valve. There is no aortic stenosis. No aortic valve insufficiency. Pulmonic Valve There is no pulmonic valvular stenosis. No pulmonic valve insufficiency. Great Vessels Normal aortic root. Pericardium/Pleural No pericardial effusion. MMode/2D Measurements & Calculations LVIDd: 4.9 cm IVSd: 0.92 cm LVOT diam: 2.0 cm LVIDs: 3.0 cm LVPWd: 0.72 cm LVOT area: 3.1 cm2 RVDd: 3.4 cm FS: 38.1 % Ao root diam: 3.3 cm LAV(MOD-bp): 48.5 ml LVAd ap4: 24.4 cm2 LAV(MOD-bp) Indexed: 24.3 ml/m2 LVLd ap4: 6.8 cm LAV(MOD-sp2): 52.2 ml EDV(MOD-sp4): 72.0 ml LAV(MOD-sp4): 44.0 ml EDV(sp4-el): 74.1 ml LVAs ap4: 11.9 cm2 LVLs ap4: 5.0 cm ESV(MOD-sp4): 24.7 ml ESV(sp4-el): 24.2 ml EF(MOD-sp4): 65.7 % EF(sp4-el): 67.4 % LVAd ap2: 23.6 cm2 SV(MOD-sp4): 47.3 ml SV(MOD-sp2): 42.2 ml LVLd ap2: 7.4 cm EDV(MOD-sp2): 63.9 ml EDV(sp2-el): 64.4 ml LVAs ap2: 11.6 cm2 LVLs ap2: 5.3 cm ESV(MOD-sp2): 21.8 ml ESV(sp2-el): 21.6 ml EF(MOD-sp2): 66.0 % SV(sp4-el): 49.9 ml LA dimension(2D): 3.3 cm LA A4 area: 17.4 cm2 RA A4 area: 12.5 cm2 TAPSE: 1.8 cm Time Measurements MV dec time: 0.19 sec Doppler Measurements & Calculations MV E max carlos: 64.2 cm/sec Lat Peak E' Carlos: 10.5 cm/sec Med Peak E' Carlos: 9.4 cm/sec MV A max carlos: 66.4 cm/sec E/E' lat: 6.1 E/E' med: 6.8 MV E/A: 0.97 Ao V2 max: 116.7 cm/sec LV V1 max: 106.1 cm/sec MV dec slope: 329.3 cm/sec2 Ao max P.4 mmHg LV V1 max P.5 mmHg Ao V2 mean: 75.3 cm/sec LV V1 mean P.3 mmHg Ao mean P.7 mmHg LV V1 mean: 69.3 cm/sec Ao V2 VTI: 23.2 cm LV V1 VTI: 22.6 cm AV (velocity ratio): 0.97 MELCHOR(I,D): 3.0 cm2 MELCHOR(V,D): 2.8 cm2 SV(LVOT): 69.3 ml PA V2 max: 86.0 cm/sec TR max carlos: 217.7 cm/sec PA max PG (full): -0.33 mmHg TR max P.0 mmHg ECHO/Echo Complete Interpretation Summary The estimated ejection fraction is 65 %. No evidence for diastolic dysfunction. Ordering Physician: Mary Carmen Webb Referring Physician: Zohaib Carrasquillo Performed By: Ann-Marie Ching RDCS and Student
== END | disposition home or self-care (01) ==
LOC: CVS 13:46
PROVIDERS: PCP Family Medicine; Referring Provider Physician Assistant Medical; Visit Provider Physician Assistant Medical
DX: R94.31 Abnormal electrocardiogram [ECG] [EKG] (principal); I34.1 Nonrheumatic mitral (valve) prolapse
CPT/HCPCS: 93306; Q9957; A4216

== ENCOUNTER → 2025-08-10 | Outpatient (CLI) | payer MEDICARE, BC, SELFPAY ==
[2025-08-14 09:09] LABS: ANTINUCLEAR ANTIBODIES DIRECT Positive (Negative); Anti-Chromatin <0.2 AI (0.0-0.9); Anti-Jo <0.2 AI (0.0-0.9); Anti-dsDNA Ab <1 IU/mL (0-9); SJOGREN'S Anti-SS-A test < 0.2 AI (0.0-0.9); SJOGREN'S Anti-SS-B test < 0.2 AI (0.0-0.9)
== END | disposition home or self-care (01) ==
LOC: MTRAD 13:08
PROVIDERS: PCP Family Medicine; Referring Provider Family Medicine; Visit Provider Family Medicine
DX: I73.00 Raynaud's syndrome without gangrene (principal); K59.09 Other constipation; R73.01 Impaired fasting glucose
CPT/HCPCS: 36415; 83036; 84443; 86038; 86225; 86235